=== PATIENT | female | born 1985 | race Caucasian/White ===

== ENCOUNTER 2017-01-04 15:18 | Inpatient (IN) ==
[2017-01-04 16:00] LABS: Basophils % 0.4 % (0.0-0.8); Eosinophils # 0.2 10*3/uL (0.0-0.87); Hematocrit 41.2 VOL% (35.7-47.0); Hemoglobin 13.8 GM/DL (12.0-16.0); Immature Granulocytes % 0.3 %; Immature Granulocytes Absolute 0.03 #; Lymphocytes # 1.9 10*3/uL (1.4-4.0); Lymphocytes % 17.9 % (21.3-54.2); Mean Corpuscular HGB Conc 33.5 GM/DL (32-36); Mean Corpuscular Hemoglobin 28 PG (27-34); Mean Corpuscular Volume 82.7 FL (87-102); Mean Platelet Volume 10.9 FL (9.6-12.0); Monocytes # 0.7 10*3/uL (0.11-0.8); Monocytes % 7.1 % (1.7-12.7); Neutrophils # 7.5 10*3/uL (1.4-7.4); Neutrophils % 72.3 % (38.7-73.9); Platelet Count 260 T/CUMM (130-400); Red Blood Count 4.98 MC/CUMM (3.8-5.5); Red Cell Distribution Width 13.2 % (9.3-17.3); White Blood Count 10.4 T/CUMM (4-12)
[2017-01-04] MEDS ORDERED: LACTATED RINGERS 1,000 ML IV SCH ×2 (16:00→20:30)
[2017-01-04] MEDS ORDERED: SUCCINYLCHOLINE 200 MG/10 ML VIAL ONE (16:07)
[2017-01-04] MEDS ORDERED: ONDANSETRON 4 MG/2 ML VIAL ONE ×2 (16:07→20:52)
[2017-01-04] MEDS ORDERED: KETOROLAC 30 MG/1 ML VIAL ONE (16:07)
[2017-01-04] MEDS ORDERED: LIDOCAINE 100 MG/5 ML SYRINGE ONE (16:07)
[2017-01-04] MEDS ORDERED: ROCURONIUM 100 MG/10 ML VIAL IV ONE (16:07)
[2017-01-04] MEDS ORDERED: PROPOFOL 200 MG/20 ML VIAL IV ONE (16:07)
[2017-01-04] MEDS ORDERED: GLYCOPYRROLATE 0.4 MG/2 ML VIAL ONE (16:07)
[2017-01-04] MEDS ORDERED: NEOSTIGMINE 10 MG/10 ML VIAL ONE (16:07)
[2017-01-04] MEDS ORDERED: ceFAZolin 1,000 MG VIAL ONE (17:02)
[2017-01-04] MEDS ORDERED: SODIUM CHLORIDE 0.9% 250 ML IV PRN (17:08)
[2017-01-04] MEDS ORDERED: ceFAZolin 2,000 MG in PREMIX 1 EACH IV ONE (18:07)
[2017-01-04 18:41] LABS: Hematocrit 30.2 VOL% (35.7-47.0); Hemoglobin 10.2 GM/DL (12.0-16.0)
[2017-01-04 19:21] LABS: Apearance,Urine CLEAR (Clear); Bilirubin,Urine Negative (Negative); Blood, Urine Negative (Negative); Glucose,Urine (UA) Negative (Negative); Hyaline Casts,Urine 1 /LPF (0-3); Ketones,Urine Negative (Negative); Nitrite,Urine Negative (Negative); Protein,Urine Negative; Squamous Epithelial Cell,Urine Occasional /HPF (0-10); Urine Color Straw (Yellow); Urine Specific Gravity 1.008 (1.001-1.035); Urine Urobilinogen < 2.0 EU/DL (0.2-1.0)
--- NOTE | 2017-01-04 20:13 | Operative Note ---
Pre-op diagnosis: ectopic Post-op diagnosis: other (cornual ectopic) Procedure: diagnostic laparoscopy and Total Abdominal Hysterectomy Ureterolysis by Dr. Melendez and Dr. Eubanks Procedure: The patient was consented for diagnostic and operative laparoscopy with a possible salpingectomy versus oophorectomy versus mini laparotomy and she was also counseled on possible need for hysterectomy. The patient and her were both amenable to the procedure and they had an opportunity ask questions. The patient was thus taken back to the operating room where general anesthesia was found to be adequate and the patient was prepped and draped in the usual sterile fashion and carefully placed in the dorsal lithotomy position in [facility]. A pelvic exam was performed and a HUMI manipulator was carefully placed into the cervix after placing a single-tooth tenaculum on the cervix and dilating the cervix. A Bird catheter was also placed. Attention was then turned to the abdomen where a small incision was made above the umbilicus a Veress needle was carefully introduced into the abdominal cavity where intra-abdominal placement was confirmed with a saline filled syringe. A pneumoperitoneum was obtained and the incision was then extended and a 5 mm trocar was carefully introduced into the abdominal cavity where intra-abdominal placement was confirmed with a scope. A survey of the patient's pelvis showed a large right cornual ectopic very vascular in nature and swollen. There was a small amount of blood in the pelvis as well. The right fallopian tube was followed all the way down. The left side looked normal. The ectopic itself was larger than the actual uterus. At this point due to the large vascular ectopic in the corneal location of the right side a phone call was patent made to the patient's who was made aware of the situation and a verbal consent was made to proceed with an abdominal hysterectomy. The patients gave onsent to proceed. The Umbilical trocar was removed and the umbilical incision was repaired using 3-0 vicryl. Attention was then turned to the abdomen where a Pfannenstiel skin incision was made with a scalpel and carried out to the underlying fascia the fascia was incised in the midline and extended laterally with Morrison scissors and the superior aspect the fascial incision was dissected off the rectus muscle the same was done with the inferior aspect of the fascial incision. The rectus muscle was divided in the midline and the peritoneum entered sharply and extended superiorly and inferiorly. The Andrez'Azael-O'Goddard retractor was carefully introduced into the incision and the bowel packed away and the retractor was placed along to hold the bowel retracted and then the bladder blade was inserted as well. Marina clamps were used to grasp either side of the cornu carefully to not disrupt the right cornual ectopic. With careful retraction the round ligament on either side were grasped suture-ligated with 0 Vicryl and cut. The broad ligament was carefully dissected open and first the left side was and a avascular area of mesosalpinx was cauterized and the uterine ovarian ligament was doubly clamped cut and suture ligated twice with 0 Vicryl with hemostasis assured. The same was done with the right side and there was a little more bleeding on that side but with careful clamping and suture ligating the hemostasis was obtained. At this point the bladder was dissected down anteriorly on both sides the uterine vessels were serially skeletonized doubly clamped cut and suture ligated using 0 Vicryl again hemostasis was assured. On the left side there was some scar tissue that was dissected down and once that was dissected down straight sugars were used to serially clamp the cardinal ligaments cut and suture ligate. Then the uterosacral ligaments on either side were clamped cut and suture ligated using 0 Vicryl in the cervix was dissected off the vagina. The vagina was reapproximated using 0 Vicryl in an interrupted [id number] fashion. The ureter on the right side was visualized without any problems it was difficult to visualize the ureter on the left side and there was a tubular structure that had been cut near the round ligament that looked like a ureter. At this point I decided to call the urologist in for further assessment. The urologist Dr. Melendez came in and dissected out the ureter and even did a cystoscopy with stent placement to confirm that there was no injury on that left side. Please refer to his dictation for further details. The tubular structure that was visualized was found out to be a vein and it was tied off using 0 Vicryl under direct visualization. Copious irrigation was performed throughout the pelvic cavity all pedicles were re- examined and noted to be hemostatic. Once everything was noted to be hemostatic the instruments were then removed from the patient's abdomen and the peritoneum was reapproximated using 3-0 Vicryl in a running fashion the muscle was reapproximated using 3-0 Vicryl in interrupted fashion the fascia was reapproximated using 0 Vicryl running fashion starting either angle and tying in the middle. The subcutaneous fat was reapproximated using 3-0 Vicryl in a running fashion and the skin was reapproximated using 3-0 Monocryl in a subcuticular fashion. Sponge lap and instrument counts were correct 3 the Bird catheter was reinserted into the patient's bladder and left in place. The patient was sent to the recovery room in stable condition. Intraoperative hemoglobin was 10. Anesthesia: GETA Surgeon / Physician: Alanis Rodriguez Stripping Shovel Oiler: Km Melendez Estimated blood loss: other (500) IV fluids: 2,500 Urine output: 1,500 (clear) Specimens: other (uterus cervix) Condition: stable Disposition: floor Results - Labs CBC & BMP: 01/04/17 Unknown Discharge Plan - Discharge Medications No Action Pnv No.95/Ferrous Fum/Folic AC [ Tablet] 1 each PO DAILY - Follow Up or Referral - Forms/Instructions
[2017-01-04] MEDS ORDERED: BENZOCAINE/MENTHOL LOZENGE 18/BOX PO PRN (20:14)
[2017-01-04] MEDS ORDERED: ACETAMINOPHEN 325 MG TABLET PO PRN (20:14)
[2017-01-04] MEDS ORDERED: BISACODYL 10 MG SUPP RECTAL PRN (20:14)
[2017-01-04] MEDS ORDERED: NALOXONE 0.4 MG/ML VIAL IV PRN (20:16)
[2017-01-04] MEDS ORDERED: MEPERIDINE 25 MG/1 ML VIAL ONE ×2 (20:21→20:54)
[2017-01-04] MEDS ORDERED: HYDROmorphone PCA 30 MG/30 ML SYRINGE IV SCH (20:30)
[2017-01-04] MEDS: MEPERIDINE 25 MG/1 ML VIAL IV PRN ×2 (20:38→20:48)
[2017-01-04] MEDS: ONDANSETRON 4 MG/2 ML VIAL IV PRN (20:50)
[2017-01-05] MEDS ORDERED: ACETAMINOPHEN 1,000 MG/100 ML VIAL IV ONE (00:29)
[2017-01-05] MEDS ORDERED: SEVOFLURANE 1 UNIT/15 MINUTE INH ONE (00:29)
[2017-01-05] MEDS ORDERED: fentaNYL 100 MCG/2 ML VIAL ONE ×2 (00:29)
[2017-01-05] MEDS ORDERED: LACTATED RINGERS 3,000 ML IV ONE (00:29)
[2017-01-05] MEDS ORDERED: MIDAZOLAM 2 MG/2 ML VIAL ONE (00:29)
--- NOTE | 2017-01-05 00:34 | Anesthesia Post-Op ---
Anesthesia Post OP - Post Ansesthetic Evaluation Patient seen in post op: Yes Resp: within normal limits CV: within normal limits Mental: within normal limits Temp: within normal limits Prqt-Xs-Dvfubzvov: within normal limits Nausea and Vomiting: within normal limits Pain: within normal limits
[2017-01-05 07:15] LABS: Basophils % 0.1 % (0.0-0.8); Hematocrit 29.7 VOL% (35.7-47.0); Hemoglobin 9.8 GM/DL (12.0-16.0); Immature Granulocytes % 0.4 %; Immature Granulocytes Absolute 0.05 #; Lymphocytes % 7.9 % (21.3-54.2); Mean Corpuscular Hemoglobin 28 PG (27-34); Mean Corpuscular Volume 83.7 FL (87-102); Mean Platelet Volume 10.4 FL (9.6-12.0); Monocytes # 0.5 10*3/uL (0.11-0.8); Monocytes % 4.2 % (1.7-12.7); Neutrophils % 87.4 % (38.7-73.9); Platelet Count 198 T/CUMM (130-400); Red Blood Count 3.55 MC/CUMM (3.8-5.5); White Blood Count 12.6 T/CUMM (4-12)
[2017-01-05] MEDS: ONDANSETRON 4 MG/2 ML VIAL IV PRN (07:35)
[2017-01-05 07:44] LABS: Calcium 7.3 MG/DL (8.5-10.1); Osmolality,Calculated 275.5 MOS/KG (273-304); Potassium 3.8 MMOL/L (3.5-5.1)
[2017-01-05] MEDS: IBUPROFEN 800 MG TABLET PO PRN ×2 (09:00→21:48)
--- NOTE | 2017-01-05 12:43 | OB/GYN Progress Note ---
Assessment and Plan (1) Cornual Status: Acute Assessment and plan: POD#1 s/p diagnostic laparoscopy and BRUCE. continue routine post op care. H/H stable Current Visit: Yes CREDIT COLLECTION SPECIALIST - PN: Subj Interval history: The pt is still a little "groggy" but feeling better. Her pain is under control. They recently removed her betancur so she has not voided yet. Exam CREDIT COLLECTION SPECIALIST - Constitutional Vitals: Vital Signs Temp Pulse Pulse Resp BP BP Pulse Ox 01/05/17 11:20 97.8 F 63 20 105/62 01/05/17 07:28 98 F 60 16 99/59 01/05/17 04:00 98.4 F 65 65 18 104/61 104/61 98 01/05/17 02:00 64 18 112/60 01/05/17 01:50 61 61 18 104/58 104/55 99 01/05/17 00:45 64 64 20 136/76 136/76 98 01/04/17 23:50 97.3 F L 60 60 18 130/73 130/73 98 01/04/17 22:50 62 62 18 135/70 135/70 98 01/04/17 22:20 60 60 18 139/89 139/89 97 01/04/17 21:45 56 L 56 L 18 132/88 132/88 98 01/04/17 21:42 62 18 124/92 99 01/04/17 21:35 60 20 126/89 01/04/17 21:25 62 18 124/92 01/04/17 21:05 96.6 F L 53 L 53 L 18 147/83 100 01/04/17 20:43 97.0 F L 52 L 16 141/75 100 01/04/17 20:42 51 L 16 141/75 100 01/04/17 20:32 48 L 16 142/78 100 01/04/17 20:22 51 L 18 143/72 100 01/04/17 20:17 55 L 12 129/69 100 01/04/17 20:12 52 L 14 147/77 100 01/04/17 20:07 57 L 12 112/69 100 01/04/17 20:02 97.1 F L 52 L 16 112/67 100 01/04/17 15:43 98.3 F 61 20 141/87 99 Pulse Ox 01/05/17 11:20 98 01/05/17 07:28 99 01/05/17 04:00 98 01/05/17 02:00 97 01/05/17 01:50 99 01/05/17 00:45 99 01/04/17 23:50 98 01/04/17 22:50 98 01/04/17 22:20 97 01/04/17 21:45 98 01/04/17 21:42 01/04/17 21:35 98 01/04/17 21:25 99 01/04/17 21:05 100 01/04/17 20:43 01/04/17 20:42 01/04/17 20:32 01/04/17 20:22 01/04/17 20:17 01/04/17 20:12 01/04/17 20:07 01/04/17 20:02 01/04/17 15:43 General appearance: normal weight, no acute distress - Respiratory Respiratory exam: Absent: accessory muscle use - Cardiovascular Cardiovascular exam: Present: regular rate and rhythm - GI/Abdominal GI/Abdominal exam: Present: tenderness (appropriate tender, dressing clean adn dry), soft. Absent: distended, guarding, rebound - Extremities Exam Extremities exam: Absent: calf tenderness - Neurological Exam Neurological exam: Present: alert, oriented X3 - Psychiatric Psychiatric exam: Present: normal affect Results - Labs CBC & BMP: 01/05/17 06:43 01/05/17 06:43
[2017-01-05] MEDS ORDERED: FLUCONAZOLE 150 MG TABLET PO SCH (19:30)
[2017-01-05] MEDS: MAGNESIUM HYDROXIDE SUSP 30 ML UDCUP PO PRN (21:48)
[2017-01-05] MEDS: SIMETHICONE CHEW 80 MG TABLET PO PRN (21:48)
[2017-01-05] MEDS: DOCUSATE SODIUM 100 MG CAPSULE PO PRN (21:48)
[2017-01-05] MEDS ORDERED: FLUCONAZOLE 150 MG TABLET PO ONE (22:00)
[2017-01-05] MEDS ORDERED: oxyCODONE/ACETAMINOPHEN 5-325 MG TABLET PO PRN (23:01)
[2017-01-06] MEDS: MAGNESIUM HYDROXIDE SUSP 30 ML UDCUP PO PRN (08:43)
[2017-01-06] MEDS: SIMETHICONE CHEW 80 MG TABLET PO PRN (08:43)
[2017-01-06] MEDS: DOCUSATE SODIUM 100 MG CAPSULE PO PRN (08:43)
--- NOTE | 2017-01-06 09:32 | OB/GYN Progress Note ---
Assessment and Plan (1) Cornual Status: Acute Assessment and plan: POD#2 s/p diagnostic laparoscopy and BRUCE. continue routine post op care. We spoke of starting an antidepressant but the pt has not decided if she wants anything at this point. She will consider her options Current Visit: Yes PAINTING INSTRUCTOR - PN: Subj Interval history: The pt is feeling very emotional this morning. She still has not had a bowel movement. She has a little pain, but it seems to be under control. Exam PAINTING INSTRUCTOR - Constitutional Vitals: Vital Signs Temp Pulse Resp BP Pulse Ox 01/06/17 07:14 97.3 F L 69 16 104/67 100 01/06/17 06:02 16 01/06/17 03:55 97.0 F L 73 18 104/69 98 01/05/17 23:50 99.1 F 81 20 109/63 97 01/05/17 19:48 97.9 F 74 20 109/64 100 01/05/17 16:00 98.5 F 74 18 116/67 98 01/05/17 14:00 17 01/05/17 11:20 97.8 F 63 20 105/62 98 General appearance: normal weight, no acute distress - Respiratory Respiratory exam: Absent: accessory muscle use - Cardiovascular Cardiovascular exam: Present: regular rate and rhythm - GI/Abdominal GI/Abdominal exam: Present: soft. Absent: guarding, rebound - Extremities Exam Extremities exam: Absent: calf tenderness - Neurological Exam Neurological exam: Present: alert, oriented X3 - Psychiatric Psychiatric exam: Present: normal affect - Skin Skin exam: Present: normal color Results - Labs CBC & BMP: 01/05/17 06:43 01/05/17 06:43
[2017-01-06 12:04] VITALS: BP 111/64
--- NOTE | 2017-01-06 12:39 | Pathology Report from [facility] ---
[facility] ACCESSION # : [id number] PATIENT NAME : Suyapa Enriquez ORDERING DR : Alanis Mascorro MD CLINICAL HX: Ectopic POST-OP DX: Same SPECIMEN INFO: Uterus, cervix, ectopic GROSS DESCRIPTION: The specimen is received in formalin labeled SUYAPA ENRIQUEZ consists of a 146.0 gm uterus and cervix measuring 9.0 x 6.0 x 4.8 cm. The serosa is red-rodriguez and free of adhesions. The cervix measures 2.2 cm with no definite exocervical epithelium grossly appreciated. The endocervical canal is rodriguez and patent. The endometrium has a thickness up to 0.4 cm. Sectioning of the uterus reveals no gross abnormalities. Present at the right fallopian tube/ uterus junction is a 2.5 x 3.0 cm fluid filled sacular structure with a 1.2 cm tiny fetus present within the sac. Sections submitted: (A) cervix, (B & C) endomyometrium (D) posterior uterine serosa, (E-G) junction of right fallopian tube and uterus. DIAGNOSIS FOR SUYAPA ENRIQUEZ: UTERUS, CERVIX, JUNCTION OF RIGHT FALLOPIAN TUBE UTERUS: Chronic cystic cervicitis. Marked decidual change of endometrium. Ectopic , right fallopian tube/uterine junction with chorionic villi and tiny fetus. COLLECTED DATE: 01/05/2017 [facility] REPORT DATE: 01/06/2017 ELECTRONICALLY SIGNED BY: Carolyn Addison M.D. 01/06/2017 - 10:26:00 MADALYN
--- NOTE | 2017-01-06 17:57 | Discharge Summary ---
Hospital Course - Hospital Course Hospital Course: The patient was admitted with an ectopic and underwent surgery. The surgery was initially a diagnostic laparoscopy which then turned into a total abdominal hysterectomy due to a right cornual ectopic. Postoperatively the patient did well and was discharged home on postoperative day #2. Diagnosis - Discharge Diagnosis (1) Cornual Status: Acute Specialty Discharge - Follow Up or Referrals Follow up with: Alanis Rodriguez MD [Physician] - 01/13/17 2:15 pm (1 week ) Discharge Plan - Discharge Data Disposition: Disch To Home/Self Care Condition at Discharge: Stable Discharge Diet: advance to your usual diet Activity: no lifting Hygiene: may shower Weight Bearing at Discharge: full weight bearing Driving: not until seen by doctor Contact your physician if you experience:: fever over 101, Difficulty voiding, Redness or swelling, Nausea/Vomiting, Shortness of breath, Bleeding, pain uncontrolled by pain medications - Discharge Medications New oxyCODONE/ACETAMINOPHEN 5-325 [Percocet 5-325] 1 - 2 tablet PO Q6H PRN #30 tablet PRN Reason: Abdominal Pain No Action Pnv No.95/Ferrous Fum/Folic AC [ Tablet] 1 each PO DAILY - Follow Up or Referral Follow Up: Alanis Rodriguez MD [Physician] - 01/13/17 2:15 pm (1 week ) - Forms/Instructions Instructions: Abdominal Hysterectomy (DC), Exploratory Laparoscopy (DC) Exam - Constitutional Vitals: Period Temp Pulse Resp BP Sys/Gonzalez Pulse Ox Last 24 Hr 97.0 F-99.1 F 66-81 16-20 104-111/63-69 97-100 Discharge Results Procedures and tests throughout hospitalization: Pending Orders 01/04/17 15:50 Red Blood Cells Leuko Red Stat Labs on day of discharge: Labs from last 24 hours 01/04/17 15:50 Blood Type Cancelled Antibody Screen Cancelled Crossmatch See Detail Blood Bank Comment Cancelled DS: Provider Date of admission: 01/04/17 20:14 Attending physician on admission: Alanis Gil- Discharging clinician: Alanis Gil- Expected date of discharge: 01/06/17
== END 2017-01-06 14:55 | disposition home or self-care (01) | DRG 777 ==
LOC: N.OR 15:18 → N.SDSINP 15:28 → N.OB 20:14
PROVIDERS: ADMIT Obstetrics & Gynecology; ATTEND Obstetrics & Gynecology